=== PATIENT | female | born 1980 ===

== ENCOUNTER 2018-06-02 16:33 | Emergency (ER) | payer OTHER ==
[~2018-06-02] VITALS: Ht 162.6 cm; Wt 65.8 kg
--- NOTE | 2018-06-02 16:44 | NUR ---
Dr Yanes at the bedside for MSE.
--- NOTE | 2018-06-02 16:51 | NUR ---
Patient discharged to home in stable conditon. Written and verbal after care instructions given. Patient verbalizes understanding of instructions.
[2018-06-02 16:52] VITALS: BP 115/76
== END 2018-06-02 16:53 | disposition home or self-care (01) ==
LOC: ER 16:39
DX: S80.862A Insect bite (nonvenomous), left lower leg, initial encounter (principal); S80.861A Insect bite (nonvenomous), right lower leg, initial encounter; Z88.1 Allergy status to other antibiotic agents; W57.XXXA Bitten or stung by nonvenomous insect and other nonvenomous arthropods, initial encounter; Y93.89 Activity, other specified; Y92.89 Other specified places as the place of occurrence of the external cause; Y99.8 Other external cause status
CPT/HCPCS: 99282; A4663

== ENCOUNTER 2018-09-15 19:05 | Emergency (ER) | payer OTHER ==
[~2018-09-15] VITALS: Ht 162.6 cm; Wt 70.3 kg
--- NOTE | 2018-09-15 19:41 | NUR ---
Dr. Rosales at bedside for MSE
[2018-09-15 19:56] LABS: *BILIRUBIN,URIN NEGATIVE (NEGATIVE); *BLOOD, URINE Trace-lysed (NEGATIVE); *KETONES,URINE NEGATIVE (NEGATIVE); *PROTEIN,URINE NEGATIVE (NEGATIVE); LEUKOCYTE ESTERASE ,URINE 1+ (NEGATIVE); NITRITE, URINE NEGATIVE (NEGATIVE); PH,URINE 5.5 (5.0-8.0); UGLUCOSE NEGATIVE (NEGATIVE)
[2018-09-15 19:58] LABS: *URINE HCG, QUAL NEGATIVE (NEGATIVE)
[2018-09-15 20:04] LABS: *CLARITY,URINE CLOUDY (CLEAR); *COLOR,URINE DARK YELLOW (YELLOW)
[2018-09-15 20:05] LABS: BACTERIA,URINE MANY /HPF (NONE SEEN); MUCUS,URINE MANY /LPF (0-FEW); SQUAMOUS EPITHELIAL CELL,UR MODERATE /HPF (NONE SEEN)
--- NOTE | 2018-09-15 20:19 | NUR ---
Patient discharged to home in stable conditon. Written and verbal after care instructions given. Patient verbalizes understanding of instructions. Pt ambulated out of ER in steady gait. All belongings with pt. VSS. NAD noted.
[2018-09-15 20:21] VITALS: BP 116/71
== END 2018-09-15 20:21 | disposition home or self-care (01) ==
LOC: ER 19:06
DX: N39.0 Urinary tract infection, site not specified (principal); B37.3 Candidiasis of vulva and vagina; Z88.1 Allergy status to other antibiotic agents
CPT/HCPCS: 84703; A4663

== ENCOUNTER 2019-09-28 20:05 | Emergency (ER) | payer SELFPAY ==
[~2019-09-28] VITALS: Ht 162.6 cm; Wt 65.8 kg
--- NOTE | 2019-09-28 20:35 | NUR ---
PATIENT WAS MSE BY DR AHMET DRIVER. PATIENT A & O X4.
--- NOTE | 2019-09-28 20:45 | NUR ---
RING WAS REMOVED WITH THE USE OF LUBRICATING JELLY. PATIENT TOLERATED PROCEDURE WELL SKIN IS IN TACT. REDNESS NOTED PRIOR TO APPLICATION OF LUBRICANT.
--- NOTE | 2019-09-28 20:50 | NUR ---
PATIENT WAS REASSES BY DR LEO WILL BE DC HOME.
[2019-09-28 20:55] VITALS: BP 110/70
--- NOTE | 2019-09-28 21:00 | NUR ---
Patient discharged to home in stable conditon. Written and verbal after care instructions given. Patient verbalizes understanding of instructions. Patient refused pain meds or icepack. Patient said she will take something when she gets home.
== END 2019-09-28 21:00 | disposition home or self-care (01) ==
LOC: ER 20:05
DX: S60.455A Superficial foreign body of left ring finger, initial encounter (principal); Z88.8 Allergy status to other drugs, medicaments and biological substances; X58.XXXA Exposure to other specified factors, initial encounter; Y93.89 Activity, other specified; Y92.89 Other specified places as the place of occurrence of the external cause; Y99.8 Other external cause status
CPT/HCPCS: A4663